=== PATIENT | male | born 1975 | race Caucasian/White ===

== ENCOUNTER 2024-02-01 10:49 | Emergency (ER) | payer MEDICAID, SELFPAY ==
[2024-02-01 10:50] VITALS: BP 128/97; PULSE 91; RESP 16; TEMP 36.7; O2SAT 97; BMI 34.1
--- NOTE | 2024-02-01 11:00 | EDS_ITS ---
HPI History of Present Illness Chief Complaint: Abd Pain [facility] Medical History (Updated 02/01/24 @ 11:00 by Gayle Yu) Constipation Allergy/AdvReac Type Severity Reaction Status Date / Time No Known Allergies Allergy Verified 02/01/24 10:52 EXAM Physical Exam Const Vital Signs: 02/01/24 10:50 Temperature 98.1 F Temperature Source Temporal Pulse Rate 91 Respiratory Rate 16 Blood Pressure 128/97 H Blood Pressure Mean 107 Pulse Ox 97 Oxygen Delivery Method Room Air [facility] Narrative Medical decision making narrative: HISTORY OF PRESENT ILLNESS: 48 M here for constipation. Patient states has been having irregular bowel movements for past 1 to 2 weeks. He states his last bowel movement was this morning but it was loose however. Denies any diarrhea or melena. Denies any hematochezia. Denies any fever. Pain is not worse with food. Denies history abdominal surgeries. No urinary complaints. REVIEW OF SYSTEMS: Pertinent positives: Irregular loose stools Pertinent negatives: Vomiting, fever, chest pain, shortness of breath, abdominal pain PHYSICAL EXAM: Nursing triage notes reviewed, Vital signs reviewed Constitutional: please see mdm HENT: MMM Eyes: Pupils equal round and reactive to light, Extraocular muscles intact Neck: No stridor, no JVD, full neck ROM Lungs: Clear to auscultation, No wheezing or rales. No increased work of breathing, no conversational dyspnea, no accessory muscle use, no nasal flaring. No respiratory distress noted Heart: Regular rate and rhythm, No murmurs, No rubs and No gallops, 2+ distal pulses (radial, femoral, posterior tibial) in all extremities Abdomen: Soft, there is no tenderness, rigidity, rebound or guarding, no obvious peritoneal signs, no palpable pulsatile abdominal masses, no auscultated abdominal bruit : No CVAT Extremities: No edema Neuro: No focal neurological deficits, cranial nerves II through XII intact, 5/5 strength in all extremities. Intact sensation to light touch in all extremities, 2+ reflexes bilateral patella tendons. Normal gait. No ataxia. Skin: No rash or lesions noted MEDICAL DECISION MAKING: Chief Complaint: Constipation External records reviewed: No recent advanced imaging of the abdomen or pelvis noted Factors affecting care: none [facility] Narrative: Patient was hemodynamically stable, afebrile and nontoxic-appearing. Abdominal exam benign. No upper quadrant tenderness, no peritoneal signs. No Acuña sign. No pain McBurney's point. I considered the following differential diagnosis: Constipation, small bowel obstruction, perforation While I considered negative emergency diagnoses his history and physical exam not consistent with any of these. I did offer the patient advanced imaging and further testing given his initial concern prompted by urgent care that he may have a bowel obstruction. Offered specifically labs to rule out signs of significant electrolyte disturbances, dehydration, and a CT scan rule out bowel obstruction. The patient was alert and orient x 3 and had capacity to make his own medical decisions and chose with a clear mind to forego imaging at this time. I told the patient I do not suspect he had any emergency diagnosis given benign exam, normal vitals and history does not consistent with obstruction or other emergency abdominal condition. Patient agreed with my assessment agrees to go home and follow with his primary care physician as well as a GI doctor. I constipation healthy diet, increase fluid intake at home remedies. The patient and/or family, caregivers express understanding. The patient and/or family, caregivers agrees with the plan. Shared decision making: I will have a discussion with the patient and or visitors regarding risk/benefits of further testing or admission. They will be made aware of of the risk/benefits inherent in this decision they will be given the opportunity to voice understanding. Total critical care time today provided was at least 0 minutes. This excludes separately billable procedures. Critical care time (if documented) is secondary to the patient having high probability of clinically significant/life threaten ing deterioration in the patient's condition which required my urgent intervention. Impression: 1. Irregular bowel movements 2. Diarrhea Dispo: Discharge This note was generated with [employer] dictation software. It may contain incorrect words, spelling, and punctuation that were not noted in review of the chart prior to signing. Discharge Plan Triage Chief Complaint: Abd Pain ED Provider: Dylan Tran Dx/Rx/DC Orders Instructions: ED Diarrhea, Unknown Cause Activity Restrictions/Additional Instructions: Thank you for trusting us with your care today! The cause of her symptoms is unclear at this time. Please take Tylenol (2 pills, 650 mg), ibuprofen (2 pills, 400 mg) every 6 hours as needed for pain and fever control. If you have loose bowel movements please make sure to replace your fluid intake with electrolyte containing solution. I recommend body armor, Pedialyte or Gat orade. Please eat a healthy and balanced diet. Please increase your fiber intake. Recommend you go to your grocery store and obtain fiber 1 cereal and start consuming a bowl of this daily. Please eat fresh fruits and vegetables. Please avoid foods that are highly processed (in packages). Please avoid fast food and food from restaurants. Please return to the emergency department if your symptoms change or worsen. Specifically develop vomiting, fever, chest pain, abdominal pain, if you not have a bowel movement for greater than 7 days. If you develop chest pain, shortness of breath or feel your heart is racing. Please follow with your primary care physician and gastroenterology for further outpatient evaluation and management. Disposition Disposition: Home, Self Care
[2024-02-01 11:30] VITALS: BP 131/90; PULSE 89; RESP 18; TEMP 37; O2SAT 97
== END 2024-02-01 11:33 | disposition home or self-care (01) ==
LOC: ED 11:26
PROVIDERS: Emergency Provider Emergency Medicine; Visit Provider Emergency Medicine
DX: R19.7 Diarrhea, unspecified (principal)
CPT/HCPCS: 99282